=== PATIENT | male | born 2000 | race Caucasian/White ===

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

== ENCOUNTER 2021-10-01 21:05 | Emergency (ER) | payer OTHER ==
[~2021-10-01] VITALS: Ht 175.3 cm; Wt 79.4 kg
[~2021-10-01 21:05] MED LIST changes: +OSLT75C PO
[2021-10-01 21:15] VITALS: BP 148/100
--- NOTE | 2021-10-01 21:19 | ED General ---
General Stated Complaint: POSS COVID Source of Information: Patient Exam Limitations: No Limitations History of Present Illness Date Seen by Provider: Oct 01, 2021 Time Seen by Provider: 21:13 Initial Comments Patient is a 21-year-old male who presents to the emergency department today for a COVID test. He states his girlfriend recently tested positive. She is fairly sick, has lost taste and smell. His boss wanted him to have a "official" COVID test today. He did take 2 home COVID test which were both negative. No complaints of shortness of breath, cough, nausea vomiting or diarrhea. No URI symptoms such as runny nose sore throat or earache. He takes medications for hypertension. Associated Systoms: Denies Symptoms Allergies and Home Medications Allergies Coded Allergies: Penicillins (Unverified Allergy, Mild, 03/11/09) ceftriaxone (Unverified Allergy, Mild, 03/11/09) Patient Home Medication List Home Medication List Reviewed: Yes Oseltamivir Phosphate (Tamiflu) 75 Mg Cap, 75 MG PO BID Prescribed by: LUKASZ GUPTA on 03/14/171913 Review of Systems Review of Systems Constitutional: see HPI EENTM: no symptoms reported Respiratory: no symptoms reported Cardiovascular: no symptoms reported Gastrointestinal: no symptoms reported Genitourinary: no symptoms reported Musculoskeletal: no symptoms reported Skin: no symptoms reported All Other Systems Reviewed Negative Unless Noted: Yes Past Nrpmmqu-Hgfyga-Sbgpbj Hx Immunizations Up To Date Tetanus Booster (TDap): Less than 5yrs PED Vaccines UTD: Yes Past Medical History Surgeries: Yes (l shoulder) Orthopedic Respiratory: No Cardiac: No Neurological: No Reproductive Disorders: No Genitourinary: No Gastrointestinal: No Musculoskeletal: No Endocrine: No Cancer: No Psychosocial: No Blood Disorders: No Physical Exam Vital Signs Capillary Refill : Height, Weight, BMI Height: 5'9.00" Weight: 155lbs. oz. 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 Decision time for Depature: 21:18 Referrals: [facility] [place] KIM,LOCAL PHYSICIAN (PCP) Primary Care Physician Patient Instructions: COVID-19 ED Add. Discharge Instructions: Drink plenty of fluids to stay well-hydrated. Just because you may have a Negative COVID test today does not mean that you may not still develop symptoms secondary to your girlfriend having COVID. If you develop any symptoms you will need to be retested. I will leave your COVID test results at the desk at registration for the morning. Return to the emergency department for any new, concerning or emergent complaints. REUBEN CUENCA MD Oct 01, 2021 21:19
== END 2021-10-01 21:21 | disposition home or self-care (01) ==
LOC: ER 21:05
DX: Z20.822 Contact with and (suspected) exposure to COVID-19 (principal); I10 Essential (primary) hypertension; Z79.899 Other long term (current) drug therapy
CPT/HCPCS: 87636; 99283

== ENCOUNTER 2022-01-04 23:08 | Emergency (ER) | payer OTHER ==
[~2022-01-04] VITALS: Ht 175.2 cm; Wt 82.5 kg
[2022-01-04 23:42] LABS: BASOPHILS # (AUTO) 0.1 10^3/uL (0.0-0.1); BASOPHILS % (AUTO) 1 % (0-10); EOSINOPHILS # (AUTO) 0.2 10^3/uL (0.0-0.3); EOSINOPHILS % (AUTO) 2 % (0-10); HEMATOCRIT 46 % (40-54); HEMOGLOBIN 15.5 g/dL (13.3-17.7); LYMPHOCYTES # (AUTO) 3.6 10^3/uL (1.0-4.0); LYMPHOCYTES % (AUTO) 46 % (12-44); MEAN CORPUSCULAR HEMOGLOBIN 28 pg (25-34); MEAN CORPUSCULAR HGB CONC 34 g/dL (32-36); MEAN CORPUSCULAR VOLUME 85 fL (80-99); MONOCYTES # (AUTO) 0.6 10^3/uL (0.0-1.0); MONOCYTES % (AUTO) 8 % (0-12); NEUTROPHILS # (AUTO) 3.3 10^3/uL (1.8-7.8); NEUTROPHILS % (AUTO) 42 % (42-75); PLATELET COUNT 295 10^3/uL (130-400); WHITE BLOOD COUNT 7.8 10^3/uL (4.3-11.0)
[2022-01-04 23:54] LABS: ALBUMIN 4.6 GM/DL (3.2-4.5); CHLORIDE 106 MMOL/L (98-107); POTASSIUM 3.4 MMOL/L (3.6-5.0); SODIUM 142 MMOL/L (135-145)
[2022-01-04 23:56] LABS: CALCIUM 9.4 MG/DL (8.5-10.1)
[2022-01-04 23:57] LABS: GLUCOSE 121 MG/DL (70-105); TOTAL PROTEIN 7.6 GM/DL (6.4-8.2)
[2022-01-04 23:58] LABS: BILIRUBIN,TOTAL 0.3 MG/DL (0.1-1.0); CARBON DIOXIDE 25 MMOL/L (21-32)
[2022-01-05] LABS: ALKALINE PHOSPHATASE 75 U/L (40-136); CREATININE SERUM 1.25 MG/DL (0.60-1.30); GFR ESTIMATED 83
[2022-01-05 00:01] LABS: BUN/CREATININE RATIO 9
[2022-01-05 00:03] LABS: ALANINE AMINOTRANSFERASE 19 U/L (0-55); MAGNESIUM 2.1 MG/DL (1.6-2.4)
--- NOTE | 2022-01-05 00:52 | ED General ---
General Chief Complaint: Cardiac/General Problems Stated Complaint: HYPERTENSION Nursing Triage Note: PT AMB TO RM 5 WITH COMPLAINTS OF HTN, NUMBNESS, DIZZINESS, AND A LEES. PT STATED THAT SYMPTOMS STARTED 30 MINUTES PRIOR TO ER VISIT. PT HAS NOT BEEN ON HTN MEDS FOR A COUPLE MONTHS. Source of Information: Patient Allergies and Home Medications Allergies Coded Allergies: Penicillins (Unverified Allergy, Mild, 03/11/09) ceftriaxone (Unverified Allergy, Mild, 03/11/09) Patient Home Medication List Oseltamivir Phosphate (Tamiflu) 75 Mg Cap, 75 MG PO BID Prescribed by: LUKASZ GUPTA on 03/14/171913 Past Ligattk-Banhxx-Wzuvzm Hx Patient Social History Tobacco Use?: Yes Use of E-Cig and/or Vaping dev: Yes E-Cig or Vaping type used: Nicotine Substance use?: No Alcohol Use?: No Pt feels they are or have been: Unable to obtain Immunizations Up To Date Tetanus Booster (TDap): Less than 5yrs PED Vaccines UTD: Yes First/Initial COVID19 Vaccinat: 2020 Second COVID19 Vaccination Bandar: 2020 Third COVID19 Vaccination Date: 2020 Past Medical History Surgery/Hospitalization HX: HTN Surgeries: Yes (l shoulder) Orthopedic Respiratory: No Cardiac: No Neurological: No Reproductive Disorders: No Genitourinary: No Gastrointestinal: No Musculoskeletal: No Endocrine: No Cancer: No Psychosocial: No Blood Disorders: No Physical Exam Vital Signs Vital Signs - First Documented 01/04/22 23:20 Temp 36.9 Pulse 91 Resp 16 B/P (MAP) 166/96 (119) Pulse Ox 98 O2 Delivery Room Air Capillary Refill : Less Than 3 Seconds Height, Weight, BMI Height: 5'9.00" Weight: 155lbs. oz. 70.436616fi; 26.00 BMI Method:Stated Progress/Results/Core Measures Suspected Sepsis SIRS Temperature: Pulse: 91 Respiratory Rate: 16 Laboratory Tests 01/04/22 23:35: White Blood Count 7.8 Blood Pressure 166 /96 Mean: 119 Laboratory Tests 01/04/22 23:35: Creatinine 1.25, Platelet Count 295, Total Bilirubin 0.3 Results/Orders Lab Results Laboratory Tests Test 01/04/22 23:35 01/04/22 23:37 Range/Units White Blood Count 7.8 4.3-11.0 10^3/uL Red Blood Count 5.45 4.30-5.52 10^6/uL Hemoglobin 15.5 13.3-17.7 g/dL Hematocrit 46 40-54 % Mean Corpuscular Volume 85 80-99 fL Mean Corpuscular Hemoglobin 28 25-34 pg Mean Corpuscular Hemoglobin Concent 34 32-36 g/dL Red Cell Distribution Width 11.6 10.0-14.5 % Platelet Count 295 130-400 10^3/uL Mean Platelet Volume 9.0 9.0-12.2 fL Immature Granulocyte % (Auto) 0 % Neutrophils (%) (Auto) 42 42-75 % Lymphocytes (%) (Auto) 46 H 12-44 % Monocytes (%) (Auto) 8 0-12 % Eosinophils (%) (Auto) 2 0-10 % Basophils (%) (Auto) 1 0-10 % Neutrophils # (Auto) 3.3 1.8-7.8 10^3/uL Lymphocytes # (Auto) 3.6 1.0-4.0 10^3/uL Monocytes # (Auto) 0.6 0.0-1.0 10^3/uL Eosinophils # (Auto) 0.2 0.0-0.3 10^3/uL Basophils # (Auto) 0.1 0.0-0.1 10^3/uL Immature Granulocyte # (Auto) 0.0 0.0-0.1 10^3/uL Sodium Level 142 135-145 MMOL/L Potassium Level 3.4 L 3.6-5.0 MMOL/L Chloride Level 106 98-107 MMOL/L Carbon Dioxide Level 25 21-32 MMOL/L Anion Gap 11 5-14 MMOL/L Blood Urea Nitrogen 11 7-18 MG/DL Creatinine 1.25 0.60-1.30 MG/DL Estimat Glomerular Filtration Rate 83 BUN/Creatinine Ratio 9 Glucose Level 121 H 70-105 MG/DL Calcium Level 9.4 8.5-10.1 MG/DL Corrected Calcium 8.5-10.1 MG/DL Magnesium Level 2.1 1.6-2.4 MG/DL Total Bilirubin 0.3 0.1-1.0 MG/DL Aspartate Amino Transf (AST/SGOT) 18 5-34 U/L Alanine Aminotransferase (ALT/SGPT) 19 0-55 U/L Alkaline Phosphatase 75 40-136 U/L Total Protein 7.6 6.4-8.2 GM/DL Albumin 4.6 H 3.2-4.5 GM/DL Influenza Type A (RT-PCR) Not Detected Not Detecte Influenza Type B (RT-PCR) Not Detected Not Detecte SARS-CoV-2 RNA (RT-PCR) Not Detected Not Detecte My Orders Orders - MANNY ANG DO Ed Iv/Invasive Line Start (01/04/22 23:20) Ekg Tracing (01/04/22:) Monitor-Rhythm Ecg Trace Only (01/04/22:) Cbc With Automated Diff (01/04/22:) Comprehensive Metabolic Panel (01/04/22:) Magnesium (01/04/22:) Ua Culture If Indicated (01/04/22:) Covid 19 Inhouse Test (01/04/22 23:30) Influenza A And B By Pcr (01/04/22 23:30) Isolation Central Supply Req (01/04/22 23:30) Ct Head Wo-R/O Stroke (01/04/22 23:31) Chest 1 View, Ap/Pa Only (01/04/22 23:31) Vital Signs/I&O 01/04/22 23:20 Temp 36.9 Pulse 91 Resp 16 B/P (MAP) 166/96 (119) Pulse Ox 98 O2 Delivery Room Air Capillary Refill : Less Than 3 Seconds Blood Pressure Mean: 119 Departure Impression Primary Impression: HTN (hypertension) Disposition: 01 HOME, SELF-CARE Condition: Stable Departure-Patient Inst. Decision time for Depature: 00:52 Referrals: NO,LOCAL PHYSICIAN (PCP/Family) Primary Care Physician Patient Instructions: DASH Diet, High Blood Pressure (DC) Add. Discharge Instructions: HOME, REST TAKE YOUR BLOOD PRESSURE MEDICATIONS INSTRUCTED FOLLOW UP WITH [facility] TOMORROW FOR FURTHER CARE All discharge instructions reviewed with patient and/or family. Voiced understanding. MANNY ANG DO Jan 05, 2022 00:51
[2022-01-05 01:18] VITALS: BP 137/77
--- NOTE | 2022-01-05 07:46 | Diagnostic Imaging Report ---
EXAMINATION: Chest radiograph, portable AP view. DATE: 01/05/2022 12:06 AM INDICATION: 21-year-old male, headache, hypertension. Chest pain. COMPARISON: None. FINDINGS: Heart size and mediastinal contours are unremarkable. There is no identified pneumothorax. There is no large pleural effusion. There is no identified focal airspace consolidation. IMPRESSION: 1. No identified acute cardiopulmonary abnormality. Dictated by: Dictated on workstation # [id number]
--- NOTE | 2022-01-05 07:48 | Diagnostic Imaging Report ---
PROCEDURE: CT head wo r/o stroke. TECHNIQUE: Multiple contiguous axial images were obtained through the brain without the use of intravenous contrast. Auto Exposure Controls were utilized during the CT exam to meet ALARA standards for radiation dose reduction. DATE: January 04, 2022. COMPARISON: CT head and cervical spine December 16, 2015. INDICATION: 21-year-old male, headache, hypertension. FINDINGS: The ventricles and cerebral spinal fluid spaces are of normal size and configuration for the patient's age. There is no mass effect or midline shift. There is no acute intracranial hemorrhage. There is no abnormal extra-axial fluid collection. The visualized portions of the paranasal sinuses, mastoid air cells and middle ears are well aerated. IMPRESSION: 1. No identified acute intracranial abnormality. Agree with the provided preliminary report. Dictated by: Dictated on workstation # [id number]
== END 2022-01-05 01:18 | disposition home or self-care (01) ==
LOC: EDUNIT# 23:08 → ER 23:12
DX: I10 Essential (primary) hypertension (principal); F17.290 Nicotine dependence, other tobacco product, uncomplicated; Z20.822 Contact with and (suspected) exposure to COVID-19
CPT/HCPCS: 36415; 70450; 71045; 80053; 83735; 85025; 87636; 93005; 93041

== ENCOUNTER 2022-12-29 09:49 | Emergency (ER) | payer OTHER ==
[~2022-12-29] VITALS: Ht 175 cm; Wt 80.0 kg
--- NOTE | 2022-12-29 10:11 | ED Chest Pain ---
General Chief Complaint: Cardiac/General Problems Stated Complaint: CHEST PAINS | CHRONIC HYPERTENSION Source: patient Exam Limitations: no limitations History of Present Illness Date Seen by Provider: Dec 29, 2022 Time Seen by Provider: 10:11 Initial Comments Patient is a 22-year-old male who presents to the emergency room with a chief complaint of heavy chest pain starting over the last 2 to 3 days. He states he has a history of hypertension but had been off of his medication until the last couple of days when the chest pain started. He describes it as a "heaviness" sitting on his chest. He endorses shortness of breath. No nausea, no sweating. He states he can feel the pain in the left side of his neck when it is at its worst. He denies any recent fevers, chills, productive cough. He is a smoker. He has strong family history of heart disease in his father, uncle and grandfather. He has never had cardiac evaluation. He states this morning pain started at approximately 8 AM prior to coming into the emergency department he had it for about 2 hours before deciding to come in. Currently rates it at a "4 5". Unknown cholesterol status. Does not use any illicit drugs. Is not a drinker Timing/Duration: 2-3 days Severity/Quality: other ("heaviness") Location: substernal Radiation: jaw (left side) Activities at Onset: activity Prior CP/Workup: no prior chest pain, no prior cardiac workup ASA po BUS ASSISTANT: No NTG SL BUS ASSISTANT: No Associated Symptoms: shortness of breath Allergies and Home Medications Allergies Coded Allergies: Penicillins (Unverified Allergy, Mild, 03/11/09) ceftriaxone (Unverified Allergy, Mild, 03/11/09) Patient Home Medication List Home Medication List Reviewed: Yes Oseltamivir Phosphate (Tamiflu) 75 Mg Cap, 75 MG PO BID Prescribed by: LUKASZ GUPTA on 03/14/171913 Review of Systems Review of Systems Constitutional: see HPI EENTM: No Symptoms Reported Respiratory: Shortness of Air Cardiovascular: Chest Pain Gastrointestinal: No Symptoms Reported Genitourinary: No Symptoms Reported Musculoskeletal: no symptoms reported Skin: no symptoms reported Psychiatric/Neurological: No Symptoms Reported Endocrine: No Symptoms Reported All Other Systems Reviewed Negative Unless Noted: Yes Past Xvnuhbv-Fxsssb-Rqkokd Hx Patient Social History Tobacco Use?: No Use of E-Cig and/or Vaping dev: Yes Substance use?: No Alcohol Use?: No Pt feels they are or have been: No Immunizations Up To Date Tetanus Booster (TDap): Less than 5yrs PED Vaccines UTD: Yes First/Initial COVID19 Vaccinat: 2020 Second COVID19 Vaccination Bandar: 2020 Third COVID19 Vaccination Date: 2020 Past Medical History Surgery/Hospitalization HX: HTN Surgeries: Yes (LEFT SHOULDER -LABRUM REPAIR) Orthopedic Respiratory: No Cardiac: Yes Hypertension Neurological: No Reproductive Disorders: No Genitourinary: No Gastrointestinal: No Musculoskeletal: Yes (LEFT SHOULDER SURGERY) Endocrine: No HEENT: No Cancer: No Psychosocial: No Blood Disorders: No Physical Exam Vital Signs Vital Signs - First Documented 12/29/22 10:08 Temp 36.8 Pulse 50 Resp 20 B/P (MAP) 150/86 (107) Pulse Ox 98 O2 Delivery Room Air Capillary Refill : Less Than 3 Seconds Height, Weight, BMI Height: 5'9.00" Weight: 155lbs. oz. 70.394166po; 26.00 BMI Method:Stated General Appearance: No Apparent Distress, WD/WN HEENT: PERRL/EOMI Neck: Normal Inspection, Supple Respiratory: Lungs Clear, Normal Breath Sounds, No Accessory Muscle Use, No Respiratory Distress Cardiovascular: Regular Rate, Rhythm, Normal Peripheral Pulses Gastrointestinal: Normal Bowel Sounds, Non Tender, Soft Extremity: Normal Capillary Refill, Normal Inspection, Normal Range of Motion, No Calf Tenderness, No Pedal Edema Neurologic/Psychiatric: Alert, Oriented x3, No Motor/Sensory Deficits, Normal Mood/Affect, salicylic acid blender II-XII Norm as Tested Skin: Normal Color, Warm/Dry Progress/Results/Core Measures Results/Orders Lab Results Laboratory Tests Test 12/29/22 10:04 12/29/22 12:34 Range/Units White Blood Count 5.1 4.3-11.0 10^3/uL Red Blood Count 5.14 4.30-5.52 10^6/uL Hemoglobin 15.0 13.3-17.7 g/dL Hematocrit 45 40-54 % Mean Corpuscular Volume 88 80-99 fL Mean Corpuscular Hemoglobin 29 25-34 pg Mean Corpuscular Hemoglobin Concent 33 32-36 g/dL Red Cell Distribution Width 11.8 10.0-14.5 % Platelet Count 290 130-400 10^3/uL Mean Platelet Volume 9.2 9.0-12.2 fL Immature Granulocyte % (Auto) 0 % Neutrophils (%) (Auto) 45 42-75 % Lymphocytes (%) (Auto) 42 12-44 % Monocytes (%) (Auto) 8 0-12 % Eosinophils (%) (Auto) 2 0-10 % Basophils (%) (Auto) 2 0-10 % Neutrophils # (Auto) 2.3 1.8-7.8 10^3/uL Lymphocytes # (Auto) 2.2 1.0-4.0 10^3/uL Monocytes # (Auto) 0.4 0.0-1.0 10^3/uL Eosinophils # (Auto) 0.1 0.0-0.3 10^3/uL Basophils # (Auto) 0.1 0.0-0.1 10^3/uL Immature Granulocyte # (Auto) 0.0 0.0-0.1 10^3/uL Prothrombin Time 13.7 12.2-14.7 SEC INR Comment 1.0 0.8-1.4 Activated Partial Thromboplast Time 27 24-35 SEC Sodium Level 139 135-145 MMOL/L Potassium Level 3.6 3.6-5.0 MMOL/L Chloride Level 108 H 98-107 MMOL/L Carbon Dioxide Level 20 L 21-32 MMOL/L Anion Gap 11 5-14 MMOL/L Blood Urea Nitrogen 9 7-18 MG/DL Creatinine 1.16 0.60-1.30 MG/DL Estimat Glomerular Filtration Rate 90 BUN/Creatinine Ratio 8 Glucose Level 92 70-105 MG/DL Calcium Level 9.1 8.5-10.1 MG/DL Corrected Calcium 8.7 8.5-10.1 MG/DL Magnesium Level 2.3 1.6-2.4 MG/DL Total Bilirubin 0.8 0.1-1.0 MG/DL Aspartate Amino Transf (AST/SGOT) 36 H 5-34 U/L Alanine Aminotransferase (ALT/SGPT) 20 0-55 U/L Alkaline Phosphatase 77 40-136 U/L Myoglobin 187.0 H 10.0-92.0 NG/ML Troponin I < 0.028 0.029 H <0.028 NG/ML Total Protein 7.3 6.4-8.2 GM/DL Albumin 4.5 3.2-4.5 GM/DL My Orders Orders - REUBEN CUENCA MD Ekg Tracing (12/29/22 09:54) Cbc And Automated Diff (12/29/22 10:19) Magnesium (12/29/22 10:19) Chest 1 View, Ap/Pa Only (12/29/22 10:19) Comprehensive Metabolic Panel (12/29/22 10:19) Myoglobin Serum (12/29/22 10:19) Protime With Inr (12/29/22 10:19) Partial Thromboplastin Time (12/29/22 10:19) O2 (12/29/22 10:19) Monitor-Rhythm Ecg Trace Only (12/29/22 10:19) Ed Iv/Invasive Line Start (12/29/22 10:19) Troponin I Aleks (12/29/22 10:19) Aspirin Chewable Tablet (Aspirin Chewabl (12/29/22 10:30) Troponin I Aleks (12/29/22 11:50) Ed Admission (Communication) (12/29/22 14:21) General/Regular (12/29/22 Dinner) Medications Given in ED Vital Signs/I&O 12/29/22 10:08 Temp 36.8 Pulse 50 Resp 20 B/P (MAP) 150/86 (107) Pulse Ox 98 O2 Delivery Room Air Progress Progress Note #1: Time: 14:00 Progress Note Patient seen and evaluated by me - evaluation today includes "chest pain protocol" - CBC, CH12, Trop, Mag, Coags, EKG and CXR. Pertinent PE includes WDWN male in NAD, mildly hypertensive with BP in the 150-160 systolic range. His heart is regular. Lungs are clear. Abdominal exam is benign. No neuro concerns/deficits. DDx includes atypical CP, ACS, GERD/ULcer Patient's labs independently reviewed and interpreted by me. HIs CBC is normal , Initial troponin < 0.028 with normal chem/mag levels. Coags normal. CXR is read by radiologist - no acute findings. EKG is normal without ST segment change or arrhythmia. I held the patient for a total of 4 hours and repeated his troponin and it went to 0.029. After careful consideration and taking into account the patient's HTN, Smoking history and family history - his heart score is "3" putting him at about a 1.7% risk of ELROY in the next 6 weeks. I felt in his case offering admission would be best as his troponin went up even just a little. This may have been artifact, but admission was offered and her accepted. Progress Note #2: Time: 16:49 Progress Note Notified by patient's nurse that the patient was wanting to leave AMA and just "follow up". Stating that he feels better. I bargained with him and asked him if I could repeat his troponin (it has now been another 4+ hr since the last one) and if it is continuing to go up, he would stay and be further evaluated, if it was normal or lower I would let him go home. He is agreeable. repeat troponin sent at this time. Repeat troponin back down to < 0.028. Patient sent with discharge instructions to return if any concern for return or worsening pain. Encouraged acid reducers and smoking cessation. Initial ECG Impression Date: Dec 29, 2022 Initial ECG Impression Time: 10:00 Initial ECG Rate: 48 Initial ECG Intervals: Normal Comment No ST elevation or depression; no ectopy Diagnostic Imaging Diagonstic Imaging: Xray Plain Films/CT/US/NM/MRI: chest Comments [facility]. [place], [place] NAME: SOULEYMANE LOMBARDO [facility] REC#: [id number] PT STATUS: REG ER : 2000 PHYSICIAN: REUBEN CUENCA MD ADMIT DATE: 12/29/22/ER Signed Date of Exam:12/29/22 CHEST 1 VIEW, AP/PA ONLY INDICATION: Chest pain. TIME OF EXAM: 10:49 AM Correlation is made with prior chest from 01/04/2022. Findings: The heart size is normal. The pulmonary vascularity is unremarkable. The lungs are clear. No infiltrate, effusion or pneumothorax is detected. Impression: No acute cardiopulmonary process is detected. Dictated by: Dictated on workstation # [id number] Dict: 12/29/22 1048 Trans: 12/29/22 1523 [id number] Interpreted by: SAMANTHA RILEY MD Electronically signed by: SAMANTHA RILEY MD 12/29/22 1523 Counseling-Asymptomatic: 3-10 minutes Discussed Options Including: Accupuncture Departure Communication (Admissions) Time/Spoke to Consulting Phy: 13:[address] Farooq Impression Primary Impression: Chest pain Qualified Codes: R07.9 - Chest pain, unspecified Additional Impressions: Hypertension Qualified Codes: I10 - Essential (primary) hypertension Tobacco use Disposition: 07 AGAINST MEDICAL ADVICE Condition: Stable Departure-Patient Inst. Decision time for Depature: 17:23 Referrals: PEDRO FAROOQ MD FACP [facility] KUMAR HERNANDEZ MD (PCP) Primary Care Physician Patient Instructions: Chest Pain (DC), High blood pressure emergencies Add. Discharge Instructions: Please take your daily blood pressure medicines as prescribed. Please call Dr. Hernandez's office tomorrow for a follow-up appointment later this week or early next week. I have given you contact information for Dr Farooq - the warp picker section supervisor - I think you need follow up with him as well. If you have any return of chest pain especially with shortness of breath, nausea, sweating or radiation of the pain into your back, jaw or shoulder or arm please return to the emergency room for reevaluation. You should consider taking an olxi-rcs-jxkozlr acid roofing superintendent such as generic Prilosec or Pepcid daily. Please strongly consider stopping smoking. Work/School Note: Work Release Form Date Seen in the Emergency Department: Dec 29, 2022 Return to Work: Dec 30, 2022 REUBEN CUENCA MD Dec 29, 2022 10:11
[2022-12-29] MEDS ORDERED: ASPIRIN 81 MG CHEWABLE TABLET PO ONE (10:30)
[2022-12-29 10:31] LABS: BASOPHILS # (AUTO) 0.1 10^3/uL (0.0-0.1); BASOPHILS % (AUTO) 2 % (0-10); EOSINOPHILS # (AUTO) 0.1 10^3/uL (0.0-0.3); EOSINOPHILS % (AUTO) 2 % (0-10); HEMATOCRIT 45 % (40-54); LYMPHOCYTES # (AUTO) 2.2 10^3/uL (1.0-4.0); LYMPHOCYTES % (AUTO) 42 % (12-44); MEAN CORPUSCULAR HEMOGLOBIN 29 pg (25-34); MEAN CORPUSCULAR HGB CONC 33 g/dL (32-36); MEAN CORPUSCULAR VOLUME 88 fL (80-99); MEAN PLATELET VOLUME 9.2 fL (9.0-12.2); MONOCYTES # (AUTO) 0.4 10^3/uL (0.0-1.0); MONOCYTES % (AUTO) 8 % (0-12); NEUTROPHILS # (AUTO) 2.3 10^3/uL (1.8-7.8); NEUTROPHILS % (AUTO) 45 % (42-75); PLATELET COUNT 290 10^3/uL (130-400); WHITE BLOOD COUNT 5.1 10^3/uL (4.3-11.0)
[2022-12-29 10:33] LABS: ALBUMIN 4.5 GM/DL (3.2-4.5); CHLORIDE 108 MMOL/L (98-107); POTASSIUM 3.6 MMOL/L (3.6-5.0); SODIUM 139 MMOL/L (135-145)
[2022-12-29 10:35] LABS: CALCIUM 9.1 MG/DL (8.5-10.1)
[2022-12-29 10:36] LABS: GLUCOSE 92 MG/DL (70-105); PROTHROMBIN TIME PATIENT 13.7 SEC (12.2-14.7); TOTAL PROTEIN 7.3 GM/DL (6.4-8.2)
[2022-12-29 10:37] LABS: BILIRUBIN,TOTAL 0.8 MG/DL (0.1-1.0); CARBON DIOXIDE 20 MMOL/L (21-32)
[2022-12-29 10:39] LABS: ALKALINE PHOSPHATASE 77 U/L (40-136)
[2022-12-29 10:40] LABS: CREATININE SERUM 1.16 MG/DL (0.60-1.30); GFR ESTIMATED 90
[2022-12-29 10:41] LABS: BUN/CREATININE RATIO 8
[2022-12-29 10:42] LABS: ALANINE AMINOTRANSFERASE 20 U/L (0-55); MAGNESIUM 2.3 MG/DL (1.6-2.4)
--- NOTE | 2022-12-29 10:50 | Diagnostic Imaging Report ---
INDICATION: Chest pain. TIME OF EXAM: 10:49 AM Correlation is made with prior chest from 01/04/2022. Findings: The heart size is normal. The pulmonary vascularity is unremarkable. The lungs are clear. No infiltrate, effusion or pneumothorax is detected. Impression: No acute cardiopulmonary process is detected. Dictated by: Dictated on workstation # [id number]
--- NOTE | 2022-12-29 14:09 | History & Physical-Hospitalist ---
History of Present Illness HPI/Chief Complaint Patient is a 22-year-old male with past medical history of hypertension tobacco abuse who presented to the emergency department due to chest pain. He states symptoms started a couple of days ago and he was seen at [facility] and sent home after some test were done but he is unsure what they were his pain started after eating [place] and he thought at first it may have been just heartburn. It gradually got better though he states the chest pressure never went away. At work this morning the pressure returned and felt like someone was sitting on his chest. He also had shortness of breath and the pain radiated to his left side. He denies any diaphoresis or nausea. Troponin was initially checked and was negative but trended up slightly on repeat to 0.029. Decision was made to admit for observation and likely stress testing in the morning. Source: patient Date Seen 12/29/22 Time Seen by a Provider: 14:39 Attending Physician Abdirashid Krishnan MD PCP Admitting Physician: Attending Physician: Referring Physician Date of Admission Home Medications & Allergies Home Medications Reviewed patient Home Medication Reconciliation performed by pharmacy medication reconciliations soil field technician and/or nursing. Patients Allergies have been reviewed. Allergies Allergies Coded Allergies Penicillins (Unverified Allergy, Mild, 03/11/09) ceftriaxone (Unverified Allergy, Mild, 03/11/09) Past Anajqyv-Abpofg-Kdtlzg Hx Patient Social History Marrital Status: Tobacco Use?: No Use of E-Cig and/or Vaping dev: Yes Substance use?: No Alcohol Use?: No Pt feels they are or have been: No Immunizations Up To Date Date of Influenza Vaccine: Apr 11, 2013 First/Initial COVID19 Vaccinat: 2020 Second COVID19 Vaccination Bandar: 2020 PED Vaccines UTD: Yes Current Status Primary Language: Malian Past Medical History Surgeries: Orthopedic Hypertension Blood Disorders: No Review of Systems Constitutional: see HPI Physical Exam Physical Exam Vital Signs Vital Signs - First Documented 12/29/22 10:08 Temp 36.8 Pulse 50 Resp 20 B/P (MAP) 150/86 (107) Pulse Ox 98 O2 Delivery Room Air Capillary Refill : Less Than 3 Seconds Height, Weight, BMI Height: 5'9.00" Weight: 155lbs. oz. 70.589401ve; 26.00 BMI Method:Stated General Appearance: No Apparent Distress Respiratory: Lungs Clear, No Respiratory Distress Cardiovascular: Regular Rate, Rhythm, No Murmur Gastrointestinal: Normal Bowel Sounds, Soft Neurologic/Psychiatric: Alert, Oriented x3 Results Results/Procedures Labs Laboratory Tests 12/29/22 10:04 Patient resulted labs reviewed. Imaging: Reviewed Imaging Report Imaging [facility]. [place], [place] NAME: SOULEYMANE LOMBARDO [facility] REC#: [id number] PT STATUS: REG ER : 2000 PHYSICIAN: REUBEN CUENCA MD ADMIT DATE: 12/29/22/ER Draft Date of Exam:12/29/22 CHEST 1 VIEW, AP/PA ONLY INDICATION: Chest pain. TIME OF EXAM: 10:49 AM Correlation is made with prior chest from 01/04/2022. Findings: The heart size is normal. The pulmonary vascularity is unremarkable. The lungs are clear. No infiltrate, effusion or pneumothorax is detected. Impression: No acute cardiopulmonary process is detected. Dictated on workstation # [id number] Dict: 12/29/22 1048 Trans: 12/29/22 1050 [id number] Interpreted by: SAMANTHA RILEY MD Electronically signed by: Assessment/Plan Admission Diagnosis Elevated Troponin Admission Status: Observation Assessment and Plan Elevated Troponin HTN Trop minimally elevated ER spoke to Dr Farooq who recommended stress test given risk factors Admit on telemetry Trend troponin Received ASA in the ER Tobacco abuse Counseled on the importance of quitting vaping Discussed patches, gums, medications, and quitting cold turkey Plans to quit as he is starting a new job that is tobacco free DVT ppx: SCDs Update: Patient elected to leave AMA prior to being admitted from the ER. Please see ER note regarding repeat troponin. Clinical Quality Measures Smoking Cessation Counseling: Counseling-Symptomatic: 3-10 Minutes Discussed Options Including: Chantix, Nicotine Patch, Nicotine Gum LANRE MEDEIROS MD Dec 29, 2022 14:09
--- NOTE | 2022-12-29 16:15 | Consultation-Cardiology ---
HPI-Cardiology Cardiology Consultation: Date of Consultation 12/29/22 Time Seen by a Provider: 15:30 Date of Admission 12-29-22 Attending Physician Abdirashid Krishnan MD Admitting Physician Admitting Physician: Attending Physician: Consulting Physician Demarcus Farooq MD HPI: Chief Complaint: Chest pain Mr. Lombardo is a 22 year old male who is being admitted from the ED with c/o chest pain. He reports he is training to join the [employer] and on Tuesday he had gone through training exercises with them. He denies any heavy lifting, but reports he did have to drag some weight. He reports on Tuesday he went to eat at [employer] and a few hours later he developed mid-sternal chest pressure at rest, radiating up and down his sternum. He reports he has been belching quite a bit. He states the chest pressure has been constant since Tuesday night. He reports he has had a cough of thick sputum. He states he went to [facility] and was given an inhaler, which he feels did not help. He reports the chest discomfort is worse with deep inspiration and movement. He reports when he woke up this morning the chest pressure was better, but not completely resolved. He states he went to work and the intensity of his chest pain increased. He states he has been on Norvasc d/t HTN for approx the last 1 1/2 yrs, but recently he has not been taking it. He reports he started taking it again on Tuesday night. He does vape. He does smoke marijuana, but quit 2 weeks ago. He denies any n/v/d. He denies any fever or chills. He reports that he is only having mild chest discomfort. Review of Systems-Cardiology Review of Systems Constitutional: No chills, No fever, No malaise Eyes: No vision change Ears/Nose/Throat: No epistaxis, No recent hearing loss Respiratory: As described under HPI Cardiovascular: As described under HPI Gastrointestinal: As described under HPI Genitourinary: No dysuria, No hematuria Musculoskeletal: no symptoms reported Skin: No rash on exposed areas, No ulcerations on exposed areas Psychiatric/Neurological: No anxiety, No depression, No seizure, No focal weakness Hematologic: No bleeding abnormalities VNU-Wictgv-Vvbmyg Hx Patient Social History Marrital Status: Alcohol Use?: No Pt feels they are or have been: No Immunizations Up To Date Tetanus Booster (TDap): Less than 5yrs Date of Influenza Vaccine: Apr 11, 2013 Past Medical History PMH As described under Assessment. Family Medical History Family Medical History: He reports his father passed at age 41 yrs, but does not think it was heart related. He does report he thinks his father had some type of heart trouble, but does not know any details. Allergies and Home Medications Allergies Coded Allergies: Penicillins (Unverified Allergy, Mild, 03/11/09) ceftriaxone (Unverified Allergy, Mild, 03/11/09) Patient Home Medication List Home Medication List Reviewed: Yes Oseltamivir Phosphate (Tamiflu) 75 Mg Cap, 75 MG PO BID Prescribed by: LUKASZ GUPTA on 03/14/171913 Physical Exam-Cardiology Physical Exam Vital Signs/I&O Capillary Refill : Less Than 3 Seconds Constitutional: AAO x 3, well-developed, well-nourished HEENT: PERRL, hearing is well preserved, oral hygience is good Neck: No carotid bruit; carotid pulses are 2 + bilaterally Respiratory: No accessory muscle use, No respiratory distress; chest expansion is symmetric, chest is bilaterally symmetric, lungs clear to auscultation Cardiovascular: regular rate-rhythm; No JVD; S1 and S2 Gastrointestinal: No tender; soft; No guarding; audible bowel sounds Extremities: no lower extremity edema bilateral Neurologic/Psychiatric: oriented x 3, other (moves all extremities) Skin: No rash on exposed areas, No ulcerations on exposed areas Data Review Labs Laboratory Tests 12/29/22 10:04: White Blood Count 5.1, Red Blood Count 5.14, Hemoglobin 15.0, Hematocrit 45, Mean Corpuscular Volume 88, Mean Corpuscular Hemoglobin 29, Mean Corpuscular Hemoglobin Concent 33, Red Cell Distribution Width 11.8, Platelet Count 290, Mean Platelet Volume 9.2, Immature Granulocyte % (Auto) 0, Neutrophils (%) (Auto) 45, Lymphocytes (%) (Auto) 42, Monocytes (%) (Auto) 8, Eosinophils (%) (Auto) 2, Basophils (%) (Auto) 2, Neutrophils # (Auto) 2.3, Lymphocytes # (Auto) 2.2, Monocytes # (Auto) 0.4, Eosinophils # (Auto) 0.1, Basophils # (Auto) 0.1, Immature Granulocyte # (Auto) 0.0, Prothrombin Time 13.7, INR Comment 1.0, Activated Partial Thromboplast Time 27, Sodium Level 139, Potassium Level 3.6, Chloride Level 108H, Carbon Dioxide Level 20L, Anion Gap 11, Blood Urea Nitrogen 9, Creatinine 1.16, Estimat Glomerular Filtration Rate 90, BUN/Creatinine Ratio 8, Glucose Level 92, Calcium Level 9.1, Corrected Calcium 8.7, Magnesium Level 2.3, Total Bilirubin 0.8, Aspartate Amino Transf (AST/SGOT) 36H, Alanine Aminotransferase (ALT/SGPT) 20, Alkaline Phosphatase 77, Myoglobin 187.0H, Tropo jane I < 0.028, Total Protein 7.3, Albumin 4.5 12/29/22 12:34: Troponin I 0.029H 12/29/22 16:45: Troponin I < 0.028 Radiology NAME: SOULEYMANE LOMBARDO [facility] REC#: [id number] PT STATUS: REG ER : 2000 PHYSICIAN: REUBEN CUENCA MD ADMIT DATE: 12/29/22/ER Signed Date of Exam:12/29/22 CHEST 1 VIEW, AP/PA ONLY INDICATION: Chest pain. TIME OF EXAM: 10:49 AM Correlation is made with prior chest from 01/04/2022. Findings: The heart size is normal. The pulmonary vascularity is unremarkable. The lungs are clear. No infiltrate, effusion or pneumothorax is detected. Impression: No acute cardiopulmonary process is detected. Dictated by: Dictated on workstation # [id number] Dict: 12/29/22 1048 Trans: 12/29/22 1523 [id number] Interpreted by: SAMANTHA RILEY MD Electronically signed by: SAMANTHA RILEY MD 12/29/22 1523 ECG Impression ECG Initial ECG Rhythm: S.Darren A/P-Cardiology Assessment/Admission Diagnosis Chest pain - minimal troponin elevation HTN Vaping - cessation advised H/O marijuana use - reports quit 2 weeks ago Discussion and Recomendations Chest pain - minimal troponin elevation - advise stress test tomorrow - advise echocardiogram to eval structure and function Monitor lab Liver enzyme elevation - undetermined etiology - medical services managing Further recs will be based on his hospital course We would like to thank medical services for this consult Clinical Quality Measures Smoking Cessation Counseling: Counseling-Symptomatic: 3-10 Minutes Discussed Options Including: Chantix, Nicotine Patch, Nicotine Gum SARAH GUPTA Dec 29, 2022 16:15
[2022-12-29] MEDS ORDERED: CATHETER FLUSH 10 ML SYR INJ PRN (16:45)
[2022-12-29] MEDS ORDERED: PANTOPRAZOLE 40 MG TABLET PO NR (17:00)
[2022-12-29 17:36] VITALS: BP 130/86
[2022-12-29] MEDS ORDERED: IBUPROFEN 600 MG TABLET PO SCH (18:00)
[2022-12-30] MEDS ORDERED: PANTOPRAZOLE 40 MG TABLET PO SCH (09:00)
[2022-12-30] MEDS ORDERED: amLODIPine 5 MG TABLET PO SCH (09:00)
== END 2022-12-29 17:35 | disposition left against medical advice (07) ==
LOC: EDUNIT# 09:49 → ER 09:50 → UNDOADMOB 16:18 → 4TH 16:18
DX: I10 Essential (primary) hypertension (principal); Z72.0 Tobacco use
CPT/HCPCS: 36415; 71045; 80053; 83735; 83874; 84484; 85025; 85610; 85730; 93005